=== PATIENT | female | born 1970 | race Caucasian/White ===

== ENCOUNTER 2017-06-15 22:55 | Emergency (ER) | payer MEDICAID ==
[2017-06-15 23:07] VITALS: BP 107/99
--- NOTE | 2017-06-15 23:42 | ERNOTE ---
Lower Extremity HPI - General Time Seen by Provider: 06/15/17 23:12 Source: patient Exam Limitations: no limitations - Immun/Allergies/Home Medications Immunizations: IMMUNIZATION HX Immunizations Up to Date Yes History of Influenza Vaccine No Hx Pneumococcal Vaccination No Allergies/Adverse Reactions: Allergies Allergy/AdvReac Type Severity Reaction Status Date / Time ciprofloxacin [From Cipro] Allergy Hives Verified 06/15/17 23:09 ipratropium Allergy Hives Verified 06/15/17 23:09 sumatriptan [From Imitrex] Allergy Other Verified 06/15/17 23:09 Home Medications: HOME MEDICATIONS Ibuprofen [Motrin] 800 mg PO TID PRN #30 tablet 06/15/17 [Last Taken Unknown] - History of Present Illness Narrative: This patient fell onto her left knee 24 hours ago and in the process she twisted her left ankle as well. He comes in 24 hours later after she has been walking on it somewhat today for increasing pain in the left knee and left ankle. She walks in with a limp. She has taken ibuprofen at home with no help. Review of Systems - Review of Systems Constitutional: Present: no symptoms reported EYE: Present: no symptoms reported ENT: Present: no symptoms reported Respiratory: Present: no symptoms reported Cardiology: Present: no symptoms reported Gastrointestinal/Abdominal: Present: no symptoms reported Genitourinary: Present: no symptoms reported Musculoskeletal: Present: See HPI - Patient's Past Medical History Patient History - Medical: No pertinent hx Patient History - Cardiac/Respiratory: Asthma Patient History - Cancer: Thyroid Patient History - Surgical Procedures: Cancer Surgery, , Hysterectomy, T & A, Orthopedic Patient History - Other: None - Social History Living Situations: home Abuse History: No History of abuse Psych History: No pertinent hx Smoking Status: Current every day smoker Alcohol Use: occasionally Drug Use: none - Immunizations Immunizations Up to Date: Yes Hx Pneumococcal Vaccination: No History of Influenza Vaccine: No Physical Exam - Physical Exam General Appearance: Present: wd/wn, alert, no apparent distress Extremity Exam: Present: other - patient has swelling of the left knee with minimal ecchymosis on the lateral aspect of the knee inferior to the patellar region. Her left ankle appears slightly swollen as well without any ecchymoses or deformity. Patient is walking with a limp. ED Progress - Vital Signs Patient's Vital Signs:: I have reviewed the patient's vital signs. Vital Signs: Vital Signs 06/15/17 23:02 Temperature 36.4 C L Pulse Rate 86 Respiratory 18 Rate Blood Pressure 107/99 O2 Sat by Pulse 96 Oximetry - X-Ray X-Ray #1 X-Ray: ankle - Progress/Reassessment Chief Complaint: Lower Extremity Pain/ Injury Plan - Plan Plan: This examiner does not see any obvious fracture upon visualization of the x-ray of the left knee and ankle. Patient does have extensive arthritis in the left knee and calcaneal spur on the left calcaneal area. She is having pain upon ambulation she will be placed in a posterior long leg OCL and given crutches she is to follow-up with her primary care physician Departure Clinical Impression: Left knee sprain Qualifiers: Encounter type: initial encounter Involved ligament of knee: unspecified ligament Qualified Code(s): S83.92XA - Sprain of unspecified site of left knee, initial encounter Left ankle sprain Qualifiers: Encounter type: initial encounter Involved ligament of ankle: unspecified ligament Qualified Code(s): S93.402A - Sprain of unspecified ligament of left ankle, initial encounter - Departure Disposition: Home self-care Condition: Fair Instructions: Ankle Sprain, Ankle Sprain, [id number], Knee Pain, [id number] , Knee Immobilizer, [id number], Knee Sprain, [id number] Referrals: Gabino Damian MD [Primary Care Provider] - Prescriptions: Ibuprofen [Motrin] 800 mg PO TID PRN #30 tablet PRN Reason: Pain
[2017-06-16] MEDS ORDERED: HYDROcodone/ACETAMINOPHEN 1 EACH TABLET ONE (00:29)
[2017-06-16] MEDS ORDERED: HYDROcodone/ACETAMINOPHEN 1 EACH TABLET PO ONE (00:34)
== END 2017-06-16 00:36 | disposition home or self-care (01) ==
LOC: ER 22:55
PROC: 2W3MX1Z Immobilization of Left Lower Extremity using Splint (ICD-10-PCS; principal; 2017-06-15)
DX: S83.92XA Sprain of unspecified site of left knee, initial encounter (principal); S93.402A Sprain of unspecified ligament of left ankle, initial encounter; F17.200 Nicotine dependence, unspecified, uncomplicated; W19.XXXA Unspecified fall, initial encounter

== ENCOUNTER 2017-08-18 07:44 | Day surgery (SDC) | payer MEDICAID ==
[~2017-08-18 07:44] MED LIST: RINGER'S SOLUTION,LACTATED 1,000 ML IV PRN
[2017-08-18] MEDS ORDERED: RINGER'S SOLUTION,LACTATED 1,000 ML IV ONE ×2 (08:30→11:30)
[2017-08-18] MEDS ORDERED: BUPIVACAINE HCL/EPINEPHRINE 50 ML VIAL IJ ONE (09:20)
[2017-08-18] MEDS ORDERED: RINGER'S SOLUTION,LACTATED 1,000 ML IV PRN (10:02)
[2017-08-18] MEDS ORDERED: oxyCODONE HCL/ACETAMINOPHEN 1 TAB TABLET PO ONE (10:30)
[2017-08-18 11:19] VITALS: BP 132/76
--- NOTE | 2017-08-18 14:11 | OR ---
Operative Report - Dictated Report Narrative: OPERATIVE REPORT DATE OF OPERATION: 08/18/2017 PREOPERATIVE DIAGNOSIS: 2 subcutaneous masses of the anterior abdominal wall POSTOPERATIVE DIAGNOSIS: Lipoma (pathology pending). Normal-appearing adipose tissue (pathology pending) OPERATION: Excision of 2 subcutaneous masses of the anterior abdominal wall ( approximately 1 cm in size) SURGEON: Alfred Manzano MD ANESTHESIA: Gen. LMA Renny Khoury CRNA INDICATIONS FOR PROCEDURE: The patient is a 46-year-old female has 2 tender areas and subcutaneous tissue at the left costal margin. FINDINGS: 1 cm lipoma and area of normal-appearing adipose tissue (pathology pending) NARRATIVE OF PROCEDURE: The patient was identified in the holding area. The surgical site was marked. Prior to the administration of anesthetic a multidisciplinary timeout was observed. The patient was placed supine, SCDs were applied, and general LMA administered. The patient's abdomen was prepped with Betadine solution and the area around the masses was isolated with 4 sterile towels. The remainder the patient was covered with a sterile disposable drape. A linear skin incisions were marked over the previously identified areas which were then infiltrated with 0.25% Marcaine with epinephrine. A short skin incision was made and dissection was carried through subcutaneous tissue and a self-contained 1 cm lipoma removed and submitted to pathology. A short incision was made over the other area and dissection carried in the normal-appearing subcutaneous tissue with electrocautery. Despite a diligent search no readily identified lipoma was encountered. The underlying subcutaneous tissue was excised and submitted to pathology. Both incisions were inspected for hemostasis which appeared complete. After receiving a correct sponge needle and instrument count attention was turned to closing the wounds. The larger incision subcutaneous tissue was approximated with a single suture of 3-0 chromic. The skin incisions were approximated with subcuticular sutures of 4-0 Vicryl. The operative sites were washed and dried. Dressings Dermabond, 4 x 4, and Medipore tape were applied. The operative procedure was terminated at this point. There was no measurable blood loss. The patient tolerated the anesthetic and procedure well without complication. She was transferred to the recovery room awake in stable condition. The patient remained stable throughout a period of postoperative observation. She had minimal discomfort. She was able to tolerate a regular diet and was up without assistance. I shared the operative findings with her. She was discharged home with instructions not to engage in hazardous activity today but she may return to normal activity tomorrow and advance diet as tolerated. She is to continue those medications as listed in the history and physical exam. She was given a prescription for Percocet 5/325 mg #20 1-2 po Q4-6hrs prn pain. She has phone #[phone] Allis needed for uncontrolled pain or signs of wound infection or hematoma. A return office appointment was made for 1 week. Reviewed and electronically signed
== END 2017-08-18 07:45 | disposition home or self-care (01) ==
LOC: AMB 07:44
PROVIDERS: ATTEND Surgery
PROC: 0JB80ZX Excision of Abdomen Subcutaneous Tissue and Fascia, Open Approach, Diagnostic (ICD-10-PCS; 2017-08-18)
PROC: 0JB80ZZ Excision of Abdomen Subcutaneous Tissue and Fascia, Open Approach (ICD-10-PCS; principal; 2017-08-18 08:45)
DX: D17.1 Benign lipomatous neoplasm of skin and subcutaneous tissue of trunk (principal); R22.2 Localized swelling, mass and lump, trunk; E03.9 Hypothyroidism, unspecified; J45.909 Unspecified asthma, uncomplicated; K21.9 Gastro-esophageal reflux disease without esophagitis; F32.9 Major depressive disorder, single episode, unspecified; E66.9 Obesity, unspecified; Z68.36 Body mass index [BMI] 36.0-36.9, adult; F17.200 Nicotine dependence, unspecified, uncomplicated